=== PATIENT | female | born 1995 ===

== ENCOUNTER 2022-10-30 08:27 | Emergency (ER) | payer MEDICAID, SELFPAY ==
--- NOTE | ~2022-10-30 | XR_ITS ---
EXAMINATION: XR ANKLE, LEFT CLINICAL INFORMATION: Pain and swelling COMPARISON: None available. TECHNIQUE: AP, lateral, and mortise views of the left ankle. FINDINGS: Visualized portion of the distal tibia and fibula demonstrate no fracture. Ankle mortise is maintained. No focal soft tissue swelling of the ankle. Tiny posterior calcaneal enthesophyte. XR/XR ankle LT 2V IMPRESSION: Normal left ankle.
[2022-10-30 08:30] VITALS: BP 149/115; PULSE 85; RESP 18; TEMP 36.8; O2SAT 99; BMI 42.0
--- NOTE | 2022-10-30 08:59 | ED_ITS ---
HPI - Extremity Problem General Chief complaint: Extremity Problem Stated complaint: L sprained ankle? Time Seen by Provider: 10/30/22 08:28 Source: patient Mode of arrival: ambulatory Limitations: no limitations History of Present Illness HPI Narrative: This is a 27 years old female presented complaining of left ankle pain, she sprained ankle last night when she missed a step Complaint: extremity pain Onset (ago): hour(s) (9) Location: left and other (ankle) Severity scale (1-10): 5 Quality: aching Radiation: none Relieving factors: nothing Exacerbating factors: weight bearing and walking Associated symptoms: denies other symptoms Related Data Previous Rx's Medication Instructions Recorded naproxen 500 mg tablet (Naprosyn) 500 mg PO BID PRN PAIN #20 tabs 10/30/22 Allergies Allergy/AdvReac Type Severity Reaction Status Date / Time No Known Allergies Allergy Unverified 04/16/20 16:34 [No Known Allergies*] Review of Systems Constitutional: Constitutional: Reports no additional constitutional complaints ENT: Reports system reviewed and no additional complaints, except as documented Cardiovascular: Cardiovascular: Reports no additional cardiovascular complaints Musculoskeletal: Musculoskeletal: Reports other (Ankle pain) Neurologic: Reports system reviewed and no additional complaints, except as documented PMFSH Social History Social History Advance Directives: No Advance Directives Information Provided: Yes Physical Exam Vital Signs: Vital Signs: Last Vital Signs Temp 98.3 F 10/30/22 08:30 Pulse 85 10/30/22 08:30 Resp 18 10/30/22 08:30 BP 149/115 H 10/30/22 08:30 Pulse Ox 99 10/30/22 08:30 O2 Del Method Room Air 10/30/22 08:30 BMI result Body Mass Index 42.0 Const: General: cooperative Nutritional Appearance: well nourished HEENT: Head: Yes normal to inspection Neck: Neck: Yes normal visual inspection Chest: Chest palpation & inspection: normal inspection of the chest Resp: Effort & Inspection: normal respiratory effort and able to speak in complete sentences Auscultation: clear to auscultation bilaterally Cardio: Jugular venous distension: no JVD Rate: regular rate Rhythm: regular rhythm GI: Inspection: Yes normal to inspection Skin: General skin exam: no rashes or lesions noted Extrem: Left lower extremity: normal capillary refill and ankle Details: tenderness Location: of the lateral malleolus and of the medial malleolus and pitting edema; no cyanosis Course Reevaluation(s) Reevaluation #1: xray negative will d/c home with crutches and air splint Time: 09:28 Medications Administered Discontinued Medications Generic Name Dose Route Start Last Admin Trade Name Freq PRN Reason Stop Dose Admin Ibuprofen 800 mg 10/30/22 08:59 10/30/22 09:07 Ibuprofen 800 Mg Tablet PO 10/30/22 09:00 800 mg ONCE ONE Administration Medical Decision Making Medical Decision Making [facility] Narrative: presented with ankle injury will do xray and reasses Differential Diagnosis Differential Diagnoses: The differential diagnosis associated with the presentation includes fx/sprain Independent Interpretation I performed an independent interpretation of an: Plain X-Ray Interpretation: no fx Radiology Impression Discussion of test interpretation with radiology: I have reviewed the radiologist's reading. Radiologist Impression: CLINICAL INFORMATION: Pain and swelling? COMPARISON: None available.? TECHNIQUE: AP, lateral, and mortise views of the left ankle. FINDINGS: Visualized portion of the distal tibia and fibula demonstrate no fracture. Ankle mortise is maintained. No focal soft tissue swelling of the ankle. Tiny posterior calcaneal enthesophyte.? XR/XR ankle LT 2V IMPRESSION: Normal left ankle. Dictated By: Kade Echols MD Signed By: <Electronically signed by Kade Echols MD in OV> 10/30/22 0858 Discharge Plan Discharge Clinical Impression: Sprain of ankle Patient Disposition: Home, Self-Care Instructions: Ankle Sprain (DC) Additional Instructions: ICe/elevation/rest naprosyn for pain,follow up with your Primary care doctor in 2 Days Prescriptions: New naproxen [Naprosyn] 500 mg tablet 500 mg PO BID PRN (Reason: PAIN) Qty: 20 0RF Referrals: Physician,Unknown J [Primary Care Provider] - 3 days Stand Alone Forms: Work/School Release Interventions: ED Discharge Assessment Last Done: 10/30/22 09:39 Discharge Date/Time: 10/30/22 09:42
[2022-10-30] MEDS: Ibuprofen 800 MG TABLET PO (09:07)
== END 2022-10-30 09:42 | disposition home or self-care (01) ==
PROVIDERS: Emergency Provider Emergency Medicine
DX: M25.572 Pain in left ankle and joints of left foot (principal)
CPT/HCPCS: 73600; 99283

== ENCOUNTER 2022-12-08 19:43 | Emergency (ER) | payer MEDICAID, SELFPAY ==
--- NOTE | ~2022-12-08 | US_ITS ---
EXAMINATION: US OBSTETRICAL ULTRASOUND CLINICAL INFORMATION: Left lower quadrant pain, positive hCG COMPARISON: None available. TECHNIQUE: Sonographic evaluation of the pelvis was performed transabdominally and transvaginally. FINDINGS: No intrauterine gestational sac is seen at this time. The left ovary measures 3.2 x 2.6 x 2.4 cm. There is a thick-walled left ovarian cyst measuring up to 1.8 cm, which may represent a corpus luteal cyst. The right ovary measures 2.5 x 2.1 x 2.0 cm and appears unremarkable. No adnexal mass is seen. Small amount of nonspecific free fluid is noted in the cul-de-sac. US/US OB pelvic and transvaginal IMPRESSION: No intrauterine is identified at this time. Correlation with beta hCG levels is recommended, as nonvisualization of a gestational sac could be due to an early stage of . Alternatively, absence of an intrauterine gestational sac may also occur with missed or ectopic , although no adnexal mass is seen to strongly suggest ectopic . Short-term sonographic follow-up and serial beta hCG levels are recommended to assess for development of an intrauterine gestational sac.
[2022-12-08 19:51] VITALS: BP 136/86; PULSE 80; RESP 18; TEMP 36.6; O2SAT 100; BMI 28.2
--- NOTE | 2022-12-08 19:52 | ED_ITS ---
HPI - General Adult General Chief complaint: Abdominal Pain Stated complaint: abdominal pain Time Seen by Provider: 12/09/22 00:35 Source: patient, RN notes reviewed and old records reviewed Mode of arrival: ambulatory Limitations: no limitations History of Present Illness HPI narrative: 27-year-old female who denies any past medical history presents for evaluation of lower abdominal pain. Patient reports her pain started 2 days ago She denies any associated symptoms including nausea vomiting, diarrhea, constip ation. She also denies burning with urination urinary frequency, blood in the urine. Denies any vaginal bleeding or discharge Patient states that her last menstrual cycle was the beginning of October She denies any history of abdominal surgeries. She reports that she has never been Her pain is currently dull, 10/07 Related Data Previous Rx's Medication Instructions Recorded naproxen 500 mg tablet (Naprosyn) 500 mg PO BID PRN PAIN #20 tabs 10/30/22 Allergies Allergy/AdvReac Type Severity Reaction Status Date / Time No Known Allergies Allergy Unverified 04/16/20 16:34 [No Known Allergies*] Review of Systems Constitutional: Constitutional: Denies body ache(s), Denies chills, Denies fever(s) and Denies headache(s) ENT: Denies headache(s) and Denies sore throat Cardiovascular: Cardiovascular: Denies chest pain and Denies dyspnea Respiratory: Respiratory: Denies cough and Denies dyspnea Gastrointestinal: Gastrointestinal: Reports abdominal pain, Denies diarrhea, Denies nausea and Denies vomiting Genitourinary: Genitourinary: Denies difficulty voiding and Denies vaginal discharge Musculoskeletal: Musculoskeletal: Denies back pain Integumentary/Breasts: Skin/Breast: Denies rash Neurologic: Denies headache(s) [facility] Social History Social History Advance Directives: No Advance Directives Information Provided: Yes Physical Exam ED Vital Signs: Vital Signs - 24 hr 12/08/22 19:51 12/09/22 00:24 12/09/22 00:27 Temperature 98 F 98.2 F Pulse Rate 80 75 62 Respiratory Rate 18 16 16 Blood Pressure 136/86 131/81 Pulse Oximetry 100 97 99 Oxygen Delivery Method Room Air Room Air Room Air BMI result Body Mass Index 28.2 Const General: healthy appearing, comfortable, no acute distress, alert and awake Nutritional Appearance: well nourished Orientation/consciousness: patient oriented x3 HENMT Head: Yes normocephalic and Yes atraumatic Eyes Eyelids: Yes eyelids normal Conjunctivae: conjunctivae normal Sclerae: sclerae normal Corneas: corneas normal EOM: EOMs intact bilaterally Neck Neck: Yes full ROM Resp Effort & Inspection: normal respiratory effort, able to speak in complete sentences and not labored Cardio Rate: regular rate Rhythm: regular rhythm GI Inspection: No distended Palpation (GI): Soft to palpation, not firm, nontender, no guarding and not rig id Auscultation: normoactive bowel sounds Skin General skin exam: no rashes or lesions noted and elasticity normal Neuro General: patient oriented x3 Cranial nerves: Yes Bilaterally intact EOM present Cognition (Neuro): normal cognition Course Course Course Narrative: This is an RME: Additional HPI, ROS, PE not included below will be deferred to primary provider. 27 year old female hx of obesity presents w/ LLQ abd pain intermittent stabbing and severe X3 days. No nausea, vomiting, fevers, chills, cp, sob, changes in bowel habbits Plan- labs imaging urine Medical Decision Making Medical Decision Making MDM Narrative: 27-year-old female presents for evaluation of lower abdominal pain. Her serum HCG was elevated to 224. It is difficult to assess the complete picture here. Is still possible that the patient has an early , it is still possible the patient has ectopic and it is possible the patient had a missed . She had ultrasound of the pelvis that did not show any evidence of intrauterine but also did not show any evidence of adnexal mass. At this time I advised the patient to return in 48 hours for repeat hCG and ultrasound. If her hCG level is trending upwards appropriately, she should have a repeat ultrasound to attempt to document intrauterine . We are still awaiting the UA to assess for UTI verses hematuria Differential Diagnosis Differential Diagnoses: The differential diagnosis associated with the presentation includes Ectopic Spontaneous Missed Lab Data [facility] Lab Attestation statement: I reviewed the patient's lab results. 12/08/22 21:42 12/08/22 21:42 Labs: Lab Results 12/08/22 12/08/22 12/08/22 Range/Units 21:42 21:42 21:42 WBC 12.7 H (4.8-10.8) X10*3/uL RBC 4.38 (4.20-5.50) X10*6/uL Hgb 13.0 (12.0-16.0) g/dl Hct 38.7 (37.0-47.0) % MCV 88.4 (80.0-98.0) fL MCH 29.7 (27.0-33.0) pg MCHC 33.6 (31.0-35.0) g/dl RDW 13.2 (11.0-16.0) % Plt Count 411 H (160-400) X10*3/uL MPV 9.6 (9.4-12.3) fL Immature Gran % (Auto) 0.5 H (0.0-0.4) % Neut % (Auto) 67.7 (45-73) % Lymph % (Auto) 23.9 (20-40) % [place] % (Auto) 5.5 (2-11) % Eos % (Auto) 2.0 (0-4) % Baso % (Auto) 0.4 (0-2) % Lymph # (Auto) 3.0 (1.2-4.9) X10*3/uL [place] # (Auto) 0.7 (0.1-1.2) X10*3/uL Eos # (Auto) 0.3 (0.0-0.4) X10*3/uL Baso # (Auto) 0.1 (0.0-0.2) X10*3/uL Abs Immat Gran (auto) 0.07 H (0.00-0.03) X10*3/uL Absolute Neuts (auto) 8.6 H (2.0-8.3) x10*3/uL Absolute Nucleated RBC 0.000 (0.0-0.012) X10*3/uL Nucleated RBC % (auto) 0.0 (0.0-0.2) /100WBC Sodium 139 (135-145) mmol/L Potassium 4.2 (3.3-5.1) mmol/L Chloride 107 (96-108) mmol/L Carbon Dioxide 26 (22-29) mmol/L Anion Gap 10 L (12-20) BUN 10 (9-16) mg/dL Creatinine 0.72 (0.5-1.4) mg/dL Estim Creat Clear Calc 131.2 Estimated GFR > 60 Random Glucose 96 (60-115) mg/dL Calcium 9.3 (8.4-10.2) mg/dL Magnesium 2.1 (1.6-2.6) mg/dL Total Bilirubin 0.6 (0.0-1.0) mg/dL AST 23 (5-31) U/L ALT 23 (0-31) U/L Alkaline Phosphatase 82 (39-117) U/L Total Protein 6.8 (6.5-8.0) g/dL Albumin 4.1 (3.5-5.0) g/dL Beta HCG, Quant 224 mIU/mL Urine Color Urine Appearance Urine pH (5.0-9.0) Ur Specific Secretary (1.005-1.025) Urine Protein (Neg-Trace) mg/dL Urine Glucose (UA) (Negative) mg/dL Urine Ketones (Negative) mg/dL Urine Blood (Negative) Urine Nitrite (Negative) Ur Leukocyte Esterase (Negative) COVID-19 (EVA) Negative (Negative) COVID-19 Clin Com See Note 12/09/22 Range/Units 01:13 WBC (4.8-10.8) X10*3/uL RBC (4.20-5.50) X10*6/uL Hgb (12.0-16.0) g/dl Hct (37.0-47.0) % MCV (80.0-98.0) fL MCH (27.0-33.0) pg MCHC (31.0-35.0) g/dl RDW (11.0-16.0) % Plt Count (160-400) X10*3/uL MPV (9.4-12.3) fL Immature Gran % (Auto) (0.0-0.4) % Neut % (Auto) (45-73) % Lymph % (Auto) (20-40) % [place] % (Auto) (2-11) % Eos % (Auto) (0-4) % Baso % (Auto) (0-2) % Lymph # (Auto) (1.2-4.9) X10*3/uL [place] # (Auto) (0.1-1.2) X10*3/uL Eos # (Auto) (0.0-0.4) X10*3/uL Baso # (Auto) (0.0-0.2) X10*3/uL Abs Immat Gran (auto) (0.00-0.03) X10*3/uL Absolute Neuts (auto) (2.0-8.3) x10*3/uL Absolute Nucleated RBC (0.0-0.012) X10*3/uL Nucleated RBC % (auto) (0.0-0.2) /100WBC Sodium (135-145) mmol/L Potassium (3.3-5.1) mmol/L Chloride (96-108) mmol/L Carbon Dioxide (22-29) mmol/L Anion Gap (12-20) BUN (9-16) mg/dL Creatinine (0.5-1.4) mg/dL Estim Creat Clear Calc Estimated GFR Random Glucose (60-115) mg/dL Calcium (8.4-10.2) mg/dL Magnesium (1.6-2.6) mg/dL Total Bilirubin (0.0-1.0) mg/dL AST (5-31) U/L ALT (0-31) U/L Alkaline Phosphatase (39-117) U/L Total Protein (6.5-8.0) g/dL Albumin (3.5-5.0) g/dL Beta HCG, Quant mIU/mL Urine Color Yellow Urine Appearance Clear Urine pH 6.0 (5.0-9.0) Ur Specific Secretary 1.020 (1.005-1.025) Urine Protein Negative (Neg-Trace) mg/dL Urine Glucose (UA) Negative (Negative) mg/dL Urine Ketones Trace (Negative) mg/dL Urine Blood Negative (Negative) Urine Nitrite Negative (Negative) Ur Leukocyte Esterase Negative (Negative) COVID-19 (EVA) (Negative) COVID-19 Clin Com Discharge Plan Discharge Clinical Impression: Patient Disposition: Still a Patient Instructions: (ED) Additional Instructions: Your test was positive. Your hormone was very low, however your last period was only last month. It is difficult to say if this is just very early in her . You need to return in 48 hours for repeat hCG level and a repeat ultrasound if your hormone is trending upwards appropriately Given your abdominal pain we need to document that this is an intrauterine versus ectopic In the meantime you should start taking vitamins You should only use Tylenol for pain, as ibuprofen is not safe for the baby Do not drink alcohol, smoke tobacco or marijuana Prescriptions: No Action naproxen [Naprosyn] 500 mg tablet 500 mg PO BID PRN (Reason: PAIN) Qty: 20 0RF Stand Alone Forms: Work/School Release
[2022-12-08 21:50] LABS: MANUAL DIFF FLAG NO
[2022-12-08 21:52] LABS: Basophils Absolute Auto 0.1 X10*3/uL (0.0-0.2); Basophils Percent Auto 0.4 % (0-2); Eosinophils Absolute Auto 0.3 X10*3/uL (0.0-0.4); Hematocrit 38.7 % (37.0-47.0); Imm Gran Abs Auto 0.07 X10*3/uL (0.00-0.03); Imm Gran Pct Auto 0.5 % (0.0-0.4); Lymphocytes Percent Auto 23.9 % (20-40); Mean Corpuscular HGB Conc 33.6 g/dl (31.0-35.0); Mean Corpuscular Hemoglobin 29.7 pg (27.0-33.0); Mean Corpuscular Volume 88.4 fL (80.0-98.0); Mean Platelet Volume 9.6 fL (9.4-12.3); Monocytes Absolute Auto 0.7 X10*3/uL (0.1-1.2); Monocytes Percent Auto 5.5 % (2-11); Neutrophils Absolute Auto 8.6 x10*3/uL (2.0-8.3); Neutrophils Percent Auto 67.7 % (45-73); Platelet Count 411 X10*3/uL (160-400); Red Blood Count 4.38 X10*6/uL (4.20-5.50); Red Cell Distribution Width 13.2 % (11.0-16.0); White Blood Count 12.7 X10*3/uL (4.8-10.8)
[2022-12-08 22:09] LABS: COVID-19 Test Negative (Negative); IDNOW Serial# 6674DD1D
[2022-12-08 22:13] LABS: Alanine Aminotransferase 23 U/L (0-31); Albumin Level 4.1 g/dL (3.5-5.0); Alkaline Phosphatase 82 U/L (39-117); Anion Gap 10 (12-20); Aspartate Amino Transferase 23 U/L (5-31); Bilirubin Total 0.6 mg/dL (0.0-1.0); Blood Urea Nitrogen 10 mg/dL (9-16); Calcium 9.3 mg/dL (8.4-10.2); Carbon Dioxide 26 mmol/L (22-29); Chloride 107 mmol/L (96-108); Creatinine Clr Calc Pharmacy 131.2; Estimated Glomerular Filt Rate > 60; Glucose Random 96 mg/dL (60-115); HCG Quantitative 224 mIU/mL; Magnesium 2.1 mg/dL (1.6-2.6); Potassium 4.2 mmol/L (3.3-5.1); Sodium 139 mmol/L (135-145); Total Protein 6.8 g/dL (6.5-8.0)
--- NOTE | 2022-12-09 00:21 | PC.NURSE ---
pt brought back from waiting room, resting comfortably on stretcher at this time. reporting LLQ pain occurring for a few days now
[2022-12-09 00:24] VITALS: PULSE 75; RESP 16; O2SAT 97
[2022-12-09 00:27] VITALS: BP 131/81; PULSE 62; RESP 16; TEMP 36.8; O2SAT 99
[2022-12-09 01:20] LABS: Appearance Urine Clear; Color Urine Yellow; Glucose Urine UA Negative (Negative); Leukocyte Esterase Urine Negative (Negative); Nitrite Urine Negative (Negative); Urine Blood Negative (Negative); Urine Ketones Trace mg/dL (Negative); Urine Protein Negative (Neg-Trace)
== END 2022-12-09 01:38 | disposition still patient (30) ==
PROVIDERS: Physician Assistant; Emergency Provider Emergency Medicine Emergency Medical Services
DX: O21.9 Vomiting of pregnancy, unspecified (principal); O26.891 Other specified pregnancy related conditions, first trimester; R10.30 Lower abdominal pain, unspecified; Z3A.01 Less than 8 weeks gestation of pregnancy; Z20.822 Contact with and (suspected) exposure to COVID-19
CPT/HCPCS: 76801; 76817; 80053; 81003; 83735; 84702; 85025; 87635; 99283; 99284

== ENCOUNTER 2022-12-12 19:55 | Emergency (ER) | payer MEDICAID, SELFPAY ==
--- NOTE | ~2022-12-12 | US_ITS ---
EXAMINATION: US OBSTETRICAL ULTRASOUND CLINICAL INFORMATION: Lower abdominal pain COMPARISON: None available. LMP: Unknown. TECHNIQUE: Both transabdominal and endovaginal scanning was performed FINDINGS: Tiny cystic area in the endometrial canal is seen which measures about 2.4 mm in diameter. This is also a gestational sac estimated age would be about 4 weeks 5 days. No pole is seen Uterus measures 9.2 x 4.7 x 4.5 cm The right maternal ovary measures 3.0 x 1.7 x 1.9 cm. The left maternal ovary measures 2.9 x 2.0 x 3.3 cm. A 1.3 x 1.0 x 1.6 cm corpus luteal cyst is present. There is no significant adnexal mass. No maternal pelvic ascites. US/US OB pelvic and transvaginal IMPRESSION: No intrauterine pole is identified at this time. A small gestational sac may be present. Correlation with beta hCG levels is recommended, as nonvisualization of a pole could be due to an early stage of . Alternatively, lack of pole may also be seen with missed or ectopic , although no adnexal mass is seen to strongly suggest ectopic . Short-term sonographic follow-up and serial beta hCG levels are recommended to assess for development of pole.
[2022-12-12 20:10] VITALS: BP 155/86; PULSE 57; RESP 18; TEMP 36.1; O2SAT 97; BMI 25.1
--- NOTE | 2022-12-12 20:10 | ED.ABDPAIN ---
HPI - Abdominal Pain General Chief Complaint: Recheck/Abnormal Lab/Rx <Aysha Mendez NP - Last Filed: 12/12/22 20:13> Stated Complaint: ultrasound/hcg level <Aysha Mendez NP - Last Filed: 12/12/22 20:13> Time Seen by Provider: 12/13/22 00:54 <Aysha Mendez NP - Last Filed: 12/12/22 20:13> Source: patient <Alberto Norris MD - Last Filed: 12/13/22 01:26> Mode of arrival: ambulatory <Alberto Norris MD - Last Filed: 12/13/22 01:26> Limitations: no limitations <Alberto Norris MD - Last Filed: 12/13/22 01:26> History of Present Illness HPI narrative: Patient about 4 weeks was seen here on 12/08 advised to come to the hospital to recheck hCG level in 48 hours to see the progress of patient has a general was 224 on 12/08 today it was 12/06/2058 patient also had ultrasound done prior to my evaluation which did not show any pole patient denies any significant abdominal pain no vaginal bleed <Alberto Norris MD - Last Filed: 12/13/22 01:26> Related Data Home Medications: Previous Rx's Medication Instructions Recorded naproxen 500 mg tablet (Naprosyn) 500 mg PO BID PRN PAIN #20 tabs 10/30/22 <Aysha Mendez NP - Last Filed: 12/12/22 20:13> Allergies/Adverse Reactions: Allergies Allergy/AdvReac Type Severity Reaction Status Date / Time No Known Allergies Allergy Unverified 04/16/20 16:34 [No Known Allergies*] <Aysha Mendez NP - Last Filed: 12/12/22 20:13> Review of Systems Review of Systems Yes all other systems are reviewed and are negative <Alberto Norris MD - Last Filed: 12/13/22 01:26> PMFSH Social History Social History: Social History Smoked in Last 30 Days: No Use of substances other than those prescribed or required for medical reasons: No Patient : Yes <Aysha Mendez NP - Last Filed: 12/12/22 20:13> Physical Exam ED Vital Signs: Vital Signs - 24 hr 12/12/22 20:10 12/13/22 00:55 Temperature 97 F 98.3 F Pulse Rate 57 68 Respiratory Rate 18 14 Blood Pressure 155/86 H 124/75 Pulse Oximetry 97 98 Oxygen Delivery Method Room Air Room Air BMI result Body Mass Index 25.1 <Aysha Mendez NP - Last Filed: 12/12/22 20:13> Vital Signs - 24 hr 12/12/22 20:10 12/13/22 00:55 Temperature 97 F 98.3 F Pulse Rate 57 68 Respiratory Rate 18 14 Blood Pressure 155/86 H 124/75 Pulse Oximetry 97 98 Oxygen Delivery Method Room Air Room Air BMI result Body Mass Index 25.1 <Alberto Norris MD - Last Filed: 12/13/22 01:26> Appearance: Alert. Oriented X3. No acute distress. ENT: Pharynx normal. Oral Mucosa moist Neck: Normal inspection. Neck supple. CVS: Normal heart rate and rhythm. Pulses normal. Respiratory: No respiratory distress. Abdomen: Soft and nontender. Bowel sounds are present, no mass palpable, no CVA tenderness Skin: Skin warm and dry. Normal skin color. Normal skin turgor. Neuro: Oriented X 3. <Alberto Norris MD - Last Filed: 12/13/22 01:26> Course Course Course Narrative: This is a rapid medical exam. Deferred additional HPI, ROS, PE to primary provider. 27 yo female here with complaints lower abdominal cramping. Patient reports she was seen here on December 08 had a mildly elevated quant but no intrauterine seen on ultrasound. It was recommended that she have repeat ultrasound and quant in 48 hours. Patient reports overall feeling better. She still has some mild cramping but this is improved. No vaginal bleeding. Will obtain labs and ultrasound\ VSS <Aysha Mendez NP - Last Filed: 12/12/22 20:13> Medical Decision Making Medical Decision Making MDM Narrative: Patient early HCT level improved to 9059 ultrasound did not show any pole at that she level is still less than 1000 patient denies any symptoms no abdominal pain no vaginal bleed patient advised to follow with OBG <Alberto Norris MD - Last Filed: 12/13/22 01:26> Lab Data MDM Lab Attestation statement: I reviewed the patient's lab results. <Alberto Norris MD - Last Filed: 12/13/22 01:26> Result Diagrams: 12/12/22 21:27 12/12/22 21:27 <Aysha Mendez NP - Last Filed: 12/12/22 20:13> Labs: Lab Results 12/12/22 12/12/22 Range/Units 21:27 21:27 WBC 12.0 H (4.8-10.8) X10*3/uL RBC 4.47 (4.20-5.50) X10*6/uL Hgb 13.2 (12.0-16.0) g/dl Hct 39.5 (37.0-47.0) % MCV 88.4 (80.0-98.0) fL MCH 29.5 (27.0-33.0) pg MCHC 33.4 (31.0-35.0) g/dl RDW 13.2 (11.0-16.0) % Plt Count 418 H (160-400) X10*3/uL MPV 9.5 (9.4-12.3) fL Immature Gran % (Auto) 0.4 (0.0-0.4) % Neut % (Auto) 67.7 (45-73) % Lymph % (Auto) 24.0 (20-40) % [facility] % (Auto) 5.8 (2-11) % Eos % (Auto) 1.6 (0-4) % Baso % (Auto) 0.5 (0-2) % Lymph # (Auto) 2.9 (1.2-4.9) X10*3/uL [facility] # (Auto) 0.7 (0.1-1.2) X10*3/uL Eos # (Auto) 0.2 (0.0-0.4) X10*3/uL Baso # (Auto) 0.1 (0.0-0.2) X10*3/uL Abs Immat Gran (auto) 0.05 H (0.00-0.03) X10*3/uL Absolute Neuts (auto) 8.1 (2.0-8.3) x10*3/uL Absolute Nucleated RBC 0.000 (0.0-0.012) X10*3/uL Nucleated RBC % (auto) 0.0 (0.0-0.2) /100WBC Sodium 139 (135-145) mmol/L Potassium 3.9 (3.3-5.1) mmol/L Chloride 107 (96-108) mmol/L Carbon Dioxide 22 (22-29) mmol/L Anion Gap 14 (12-20) BUN 10 (9-16) mg/dL Creatinine 0.74 (0.5-1.4) mg/dL Estim Creat Clear Calc 113.0 Estimated GFR > 60 Random Glucose 91 (60-115) mg/dL Calcium 9.2 (8.4-10.2) mg/dL Beta HCG, Quant 959 mIU/mL <Aysha Mendez, [employer] - Last Filed: 12/12/22 20:13> Lab Results 12/12/22 12/12/22 Range/Units 21:27 21:27 WBC 12.0 H (4.8-10.8) X10*3/uL RBC 4.47 (4.20-5.50) X10*6/uL Hgb 13.2 (12.0-16.0) g/dl Hct 39.5 (37.0-47.0) % MCV 88.4 (80.0-98.0) fL MCH 29.5 (27.0-33.0) pg MCHC 33.4 (31.0-35.0) g/dl RDW 13.2 (11.0-16.0) % Plt Count 418 H (160-400) X10*3/uL MPV 9.5 (9.4-12.3) fL Immature Gran % (Auto) 0.4 (0.0-0.4) % Neut % (Auto) 67.7 (45-73) % Lymph % (Auto) 24.0 (20-40) % [facility] % (Auto) 5.8 (2-11) % Eos % (Auto) 1.6 (0-4) % Baso % (Auto) 0.5 (0-2) % Lymph # (Auto) 2.9 (1.2-4.9) X10*3/uL [facility] # (Auto) 0.7 (0.1-1.2) X10*3/uL Eos # (Auto) 0.2 (0.0-0.4) X10*3/uL Baso # (Auto) 0.1 (0.0-0.2) X10*3/uL Abs Immat Gran (auto) 0.05 H (0.00-0.03) X10*3/uL Absolute Neuts (auto) 8.1 (2.0-8.3) x10*3/uL Absolute Nucleated RBC 0.000 (0.0-0.012) X10*3/uL Nucleated RBC % (auto) 0.0 (0.0-0.2) /100WBC Sodium 139 (135-145) mmol/L Potassium 3.9 (3.3-5.1) mmol/L Chloride 107 (96-108) mmol/L Carbon Dioxide 22 (22-29) mmol/L Anion Gap 14 (12-20) BUN 10 (9-16) mg/dL Creatinine 0.74 (0.5-1.4) mg/dL Estim Creat Clear Calc 113.0 Estimated GFR > 60 Random Glucose 91 (60-115) mg/dL Calcium 9.2 (8.4-10.2) mg/dL Beta HCG, Quant 959 mIU/mL <Alberto Norris MD - Last Filed: 12/13/22 01:26> Discharge Plan Discharge Clinical Impression: Early stage of <Aysha Mendez NP - Last Filed: 12/12/22 20:13> Patient Disposition: Home, Self-Care <Aysha Mendez NP - Last Filed: 12/12/22 20:13> Instructions: (ED) <Aysha Mendez NP - Last Filed: 12/12/22 20:13> Additional Instructions: Follow-up with OBG Report to the ER if vaginal bleeding or increased abdominal pain <Aysha Mendez NP - Last Filed: 12/12/22 20:13> Prescriptions: No Action naproxen [Naprosyn] 500 mg tablet 500 mg PO BID PRN (Reason: PAIN) Qty: 20 0RF <Aysha Mendez NP - Last Filed: 12/12/22 20:13> Referrals: Jean Claude Castillo MD [Physician] - 2 weeks <Aysha Mendez NP - Last Filed: 12/12/22 20:13> Interventions: ED Discharge Assessment Last Done: 12/13/22 01:22 <Aysha Mendez NP - Last Filed: 12/12/22 20:13>
[2022-12-12 21:31] LABS: MANUAL DIFF FLAG NO
[2022-12-12 21:34] LABS: Basophils Absolute Auto 0.1 X10*3/uL (0.0-0.2); Basophils Percent Auto 0.5 % (0-2); Eosinophils Absolute Auto 0.2 X10*3/uL (0.0-0.4); Eosinophils Percent Auto 1.6 % (0-4); Hematocrit 39.5 % (37.0-47.0); Hemoglobin 13.2 g/dl (12.0-16.0); Imm Gran Abs Auto 0.05 X10*3/uL (0.00-0.03); Imm Gran Pct Auto 0.4 % (0.0-0.4); Lymphocytes Absolute Auto 2.9 X10*3/uL (1.2-4.9); Mean Corpuscular HGB Conc 33.4 g/dl (31.0-35.0); Mean Corpuscular Hemoglobin 29.5 pg (27.0-33.0); Mean Corpuscular Volume 88.4 fL (80.0-98.0); Mean Platelet Volume 9.5 fL (9.4-12.3); Monocytes Absolute Auto 0.7 X10*3/uL (0.1-1.2); Monocytes Percent Auto 5.8 % (2-11); Neutrophils Absolute Auto 8.1 x10*3/uL (2.0-8.3); Neutrophils Percent Auto 67.7 % (45-73); Platelet Count 418 X10*3/uL (160-400); Red Blood Count 4.47 X10*6/uL (4.20-5.50); Red Cell Distribution Width 13.2 % (11.0-16.0)
[2022-12-12 21:53] LABS: Anion Gap 14 (12-20); Blood Urea Nitrogen 10 mg/dL (9-16); Calcium 9.2 mg/dL (8.4-10.2); Carbon Dioxide 22 mmol/L (22-29); Chloride 107 mmol/L (96-108); Estimated Glomerular Filt Rate > 60; Glucose Random 91 mg/dL (60-115); Potassium 3.9 mmol/L (3.3-5.1); Sodium 139 mmol/L (135-145)
[2022-12-12 21:55] LABS: HCG Quantitative 959 mIU/mL
[2022-12-13 00:55] VITALS: BP 124/75; PULSE 68; RESP 14; TEMP 36.8; O2SAT 98
== END 2022-12-13 01:29 | disposition home or self-care (01) ==
LOC: HO.ED 12-13 01:28
PROVIDERS: Nurse Practitioner Family; Emergency Provider Internal Medicine
DX: O26.891 Other specified pregnancy related conditions, first trimester (principal); R10.30 Lower abdominal pain, unspecified; Z3A.01 Less than 8 weeks gestation of pregnancy
CPT/HCPCS: 36415; 76801; 76817; 80048; 84702; 85025; 99284

== ENCOUNTER 2023-07-15 20:00 | Emergency (ER) | payer MEDICAID, SELFPAY ==
[2023-07-15 21:07] VITALS: BP 125/77; PULSE 67; RESP 18; TEMP 36.9; O2SAT 99; BMI 42.9
[2023-07-15 21:43] LABS: MANUAL DIFF FLAG NO
[2023-07-15 21:47] LABS: Appearance Urine Cloudy; Basophils Absolute Auto 0.1 X10*3/uL (0.0-0.2); Basophils Percent Auto 0.5 % (0-2); Color Urine Yellow; Eosinophils Absolute Auto 0.2 X10*3/uL (0.0-0.4); Eosinophils Percent Auto 1.4 % (0-4); Glucose Urine UA Negative (Negative); Hematocrit 39.3 % (37.0-47.0); Hemoglobin 13.1 g/dl (12.0-16.0); Imm Gran Abs Auto 0.08 X10*3/uL (0.00-0.03); Imm Gran Pct Auto 0.5 % (0.0-0.4); Leukocyte Esterase Urine Negative (Negative); Lymphocytes Percent Auto 20.1 % (20-40); Mean Corpuscular HGB Conc 33.3 g/dl (31.0-35.0); Mean Corpuscular Hemoglobin 28.9 pg (27.0-33.0); Mean Corpuscular Volume 86.8 fL (80.0-98.0); Mean Platelet Volume 9.8 fL (9.4-12.3); Monocytes Absolute Auto 0.8 X10*3/uL (0.1-1.2); Monocytes Percent Auto 5.2 % (2-11); Neutrophils Absolute Auto 10.6 x10*3/uL (2.0-8.3); Neutrophils Percent Auto 72.3 % (45-73); Nitrite Urine Negative (Negative); PH 5.5 (5.0-9.0); Platelet Count 489 X10*3/uL (160-400); Red Blood Count 4.53 X10*6/uL (4.20-5.50); Red Cell Distribution Width 12.8 % (11.0-16.0); Specific Gravity - Urine >= 1.030 (1.005-1.025); Urine Blood Negative (Negative); Urine Ketones Negative (Negative); Urine Protein Trace mg/dL (Neg-Trace); White Blood Count 14.7 X10*3/uL (4.8-10.8)
[2023-07-15 21:50] LABS: Bacteria Urine 4+ (None Seen); Hyaline Casts Urine 0-2 /LPF (0-2); Squamous Epithelial Cell Urine >20 /HPF (0-2); UACC Culture Trigger YES
[2023-07-15 22:05] LABS: Alanine Aminotransferase 34 U/L (0-31); Albumin Level 4.2 g/dL (3.5-5.0); Alkaline Phosphatase 78 U/L (39-117); Anion Gap 13 (12-20); Aspartate Amino Transferase 19 U/L (5-31); Bilirubin Total 0.3 mg/dL (0.0-1.0); Blood Urea Nitrogen 12 mg/dL (9-16); Calcium 9.4 mg/dL (8.4-10.2); Carbon Dioxide 23 mmol/L (22-29); Chloride 105 mmol/L (96-108); Creatinine Clr Calc Pharmacy 133.1; Estimated Glomerular Filt Rate > 60; Glucose Random 92 mg/dL (60-115); Potassium 3.7 mmol/L (3.3-5.1); Sodium 137 mmol/L (135-145); Total Protein 7.6 g/dL (6.5-8.0)
[2023-07-15 22:22] LABS: HCG Quantitative 68773 mIU/mL
== END 2023-07-16 01:20 | disposition left against medical advice (07) ==
PROVIDERS: Emergency Provider Emergency Medicine
DX: R10.32 Left lower quadrant pain (principal)
CPT/HCPCS: 36415; 80053; 81001; 84702; 85025; 86900; 86901; 87086; 99282; 99283